=== PATIENT | male | born 1955 | race African-American/Black ===

== ENCOUNTER 2019-07-21 12:52 | Emergency (ER) | payer MEDICARE, MEDICAID ==
[~2019-07-21] VITALS: Ht 190.5 cm; Wt 105.0 kg
[2019-07-21 13:00] VITALS: BP 165/103
[2019-07-21] MEDS ORDERED: ACETAMINOPHEN 325MG TABLET PO ONE (13:30)
[2019-07-21] MEDS ORDERED: ACETAMINOPHEN WITH CODEINE 300/30MG TABLET PO ONE (14:45)
== END 2019-07-21 15:07 | disposition home or self-care (01) ==
LOC: ER 12:52
DX: R07.89 Other chest pain (principal); M54.2 Cervicalgia; G89.11 Acute pain due to trauma; S61.412A Laceration without foreign body of left hand, initial encounter; R03.0 Elevated blood-pressure reading, without diagnosis of hypertension; V49.40XA Driver injured in collision with unspecified motor vehicles in traffic accident, initial encounter; Y93.89 Activity, other specified; Y92.410 Unspecified street and highway as the place of occurrence of the external cause
CPT/HCPCS: 71045; 99283